=== PATIENT | male | born 1955 | race Caucasian/White ===

== ENCOUNTER 2021-08-24 00:44 | Day surgery (SDC) | payer MEDICARE, SELFPAY ==
[2021-08-14 13:48] VITALS: BMI 27.6
[2021-08-24 08:05] VITALS: BP 126/61; PULSE 72; RESP 18; TEMP 36.7; O2SAT 99; BMI 26.4
[2021-08-24] MEDS: LACTATED RINGERS 1,000 ML 150 ML IV CONT (08:27)
--- NOTE | 2021-08-24 08:42 | WPDANESEPPF ---
Anes - Initial Pre Proc Eval Procedure: Operation Date: 08/24/21 09:00 Proposed Procedures p Screening Colonoscopy - Barrera Xiong MD Date/Time: 08/24/21 08:42 Surgeon: Barrera Xiong MD Pre Op Diagnosis: hx of colon polyps Patient Data Age: 65 Gender: M Height: 1.7 m Weight: 76.4 kg Last Vital Signs Temp 98.0 F 08/24/21 08:05 Pulse 72 08/24/21 08:05 Resp 18 08/24/21 08:05 BP 126/61 08/24/21 08:05 Pulse Ox 99 08/24/21 08:05 Allergies Allergy/AdvReac Type Severity Reaction Status Date / Time No Known Allergies Allergy Verified 08/24/21 08:16 Home Medications Medication Instructions Recorded Confirmed Type acidophilus-pectin, citrus 1 cap PO DAILY 08/14/21 08/24/21 History [Acidophilus Probiotic] aspirin 81 mg PO DAILY 08/14/21 08/24/21 History nrglzpwtdzze-zqr-vyyq-FA-vit K 1 tablet PO DAILY 08/14/21 08/24/21 History [Adults Multivitamin] atorvastatin 20 mg tablet 20 mg PO DAILY #90 tablet 08/21/21 08/24/21 Rx lisinopril 20 mg tablet 20 mg PO DAILY #90 tablet 08/21/21 08/24/21 Rx buspirone 15 mg tablet 15 mg PO BID #180 tablet 08/23/21 08/24/21 Rx Patient hx anesthesia problems: none Family hx anesthesia problems: none Results Review: All pre-operative results and documents have been reviewed as part of the pre-operative evaluation. [facility] Past Medical History Medical History (Updated 06/12/21 @ 08:44 by Carlos Rosario MD) Abnormal colonoscopy 10/02 polyp Family History Family History (Updated 06/09/21 @ 11:49 by Carlos Rosario MD) Father Acute myocardial infarction Other Diabetes mellitus Family history of alcoholism Social History Social History (Updated 06/12/21 @ 08:21 by Marija Scanlon MA) Smoking status: Never smoker Second hand tobacco smoke exposure: No Alcohol intake: former Drinks per week: 1 Substance use: never Substance use type: does not use Living arrangements: with family Gender identity (if verbalized by the patient): Male Sexual Orientation (if Verbalized by the Patient): Straight or Heterosexual Spiritual care concerns: No Agree to blood products: Yes Anes - Eval Final PreProcedure Day of Procedure 08/24/21 08:42 Patient weight: normal Heart: regular rate and rhythm Lungs: clear to auscultation Airway: Mallampati scale class II Neurological: alert and oriented Last oral intake: >/= 8 hours ASA classification: II Emergent: no Anesthetic plan: proceed Anesthesia type and monitoring: general GIVS and standard monitoring Results Review: All pre-operative results and documents have been reviewed as part of the pre-operative evaluation. Informed Consent: The patient's anesthetic plan and its attendant risks and benefits were discussed with the patient/family/POA. Questions were solicited and answers provided to the satisfaction of the patient/family/POA.
--- NOTE | 2021-08-24 08:45 | WPDGICN ---
Assessment and Plan Assessment and plan (1) Encounter for screening colonoscopy: Code(s): Z12.11 - Encounter for screening for malignant neoplasm of colon Status: Acute Assessment and Plan: Patient presents today for screening colonoscopy. Further recommendations will be given after endoscopy. GI Consult Note Consult date/time: 08/24/21 08:45 HPI: Gorge Hays is a 65 year old male Presents for screening colonoscopy. Patient's current weight appetite and bowel movements are normal. He denies abdominal pain. He has had no bleeding. Family history noncontributory. Patient has prior history is significant for benign colon polyp 6 years ago. Patient presents today for neoplasia screening. Review of Systems Review of Systems: All systems reviewed & are unremarkable except as noted in HPI and below PMFSH Past Medical History Medical History (Updated 08/24/21 @ 08:46 by Barrera Xiong MD) Abnormal colonoscopy 10/02 polyp Family History Family History (Updated 06/09/21 @ 11:49 by Carlos Rosario MD) Father Acute myocardial infarction Other Diabetes mellitus Family history of alcoholism Social History Social History (Updated 06/12/21 @ 08:21 by Marija Scanlon MA) Smoking status: Never smoker Second hand tobacco smoke exposure: No Alcohol intake: former Drinks per week: 1 Substance use: never Substance use type: does not use Living arrangements: with family Gender identity (if verbalized by the patient): Male Sexual Orientation (if Verbalized by the Patient): Straight or Heterosexual Spiritual care concerns: No Agree to blood products: Yes Meds Home Medications and Allergies Home Medications Medication Instructions Recorded Confirmed Type acidophilus-pectin, citrus 1 cap PO DAILY 08/14/21 08/24/21 History [Acidophilus Probiotic] aspirin 81 mg PO DAILY 08/14/21 08/24/21 History jutjekwldpce-kum-khwj-FA-vit K 1 tablet PO DAILY 08/14/21 08/24/21 History [Adults Multivitamin] atorvastatin 20 mg tablet 20 mg PO DAILY #90 tablet 08/21/21 08/24/21 Rx lisinopril 20 mg tablet 20 mg PO DAILY #90 tablet 08/21/21 08/24/21 Rx buspirone 15 mg tablet 15 mg PO BID #180 tablet 08/23/21 08/24/21 Rx Allergies Allergy/AdvReac Type Severity Reaction Status Date / Time No Known Allergies Allergy Verified 08/24/21 08:16 Vital Signs Vital Signs - 24 hr 08/24/21 08:05 Temperature 98.0 F Pulse Rate 72 Respiratory Rate 18 Blood Pressure 126/61 Pulse Oximetry 99 Exam Narrative: Physical exam reveals patient to be alert. Vital signs stable. HEENT exam is unremarkable. Patient is anicteric. Lungs are clear to auscultation and percussion. Heart is without murmur or extra sounds. Abdominal exam bowel sounds are present soft nontender with no hepatosplenomegaly. Digital external rectal exam is normal.
[2021-08-24 09:19] VITALS: BP 82/56; PULSE 74; RESP 16; O2SAT 98
[2021-08-24 09:29] VITALS: BP 97/69; PULSE 66; RESP 20; O2SAT 95
[2021-08-24 09:39] VITALS: BP 107/75; PULSE 62; RESP 19; O2SAT 96
== END 2021-08-24 09:54 | disposition home or self-care (01) ==
PROVIDERS: PCP Family Medicine Adolescent Medicine; Visit Provider Internal Medicine Gastroenterology
PROC: 0DJD8ZZ Inspection of Lower Intestinal Tract, Via Natural or Artificial Opening Endoscopic (ICD-10-PCS; CPT 45378; principal; 2021-08-24 09:00)
DX: Z12.11 Encounter for screening for malignant neoplasm of colon (principal); D17.5 Benign lipomatous neoplasm of intra-abdominal organs; K64.8 Other hemorrhoids; K57.30 Diverticulosis of large intestine without perforation or abscess without bleeding; Z86.010 Personal history of colon polyps
CPT/HCPCS: 45380; 88305; J2704; J7120

== ENCOUNTER → 2022-10-08 09:55 | Outpatient (CLI) | payer MEDICARE, SELFPAY ==
--- NOTE | ~2022-10-08 | XR_ITS ---
[XR ribs LT 2V w CXR 2V ] INDICATION: Chest wall pain TECHNIQUE: Frontal projection of the upper left ribs, frontal projection of the lower left ribs, obli que projection of all the left ribs, frontal inspiratory chest x-ray for interpretation. FINDINGS: There is an acute minimally displaced left sixth rib fracture. There are no soft tissue abn ormality seen. There is left lower lobe airspace disease, which may represent atelectasis, pneumonia or contusion. Small left pleural effusion/hemothorax. IMPRESSION: 1: Acute minimally displaced left sixth rib fracture. 2: Left lower lobe airspace disease may represent atelectasis, pneumonia and/or contusion. 3: Small left pleural effusion/hemothorax. Reviewed, dictated and finalized at location B.
== END ==
PROVIDERS: PCP Family Medicine Adolescent Medicine; Visit Provider Family Medicine Adolescent Medicine
DX: S29.8XXA Other specified injuries of thorax, initial encounter (principal); X58.XXXA Exposure to other specified factors, initial encounter; J90 Pleural effusion, not elsewhere classified; R91.8 Other nonspecific abnormal finding of lung field
CPT/HCPCS: 71046; 71100

== ENCOUNTER 2024-03-30 09:37 | Outpatient (CLI) | payer MEDICARE, SELFPAY ==
--- NOTE | ~2024-03-30 | XR_ITS ---
EXAMINATION: XR knee LT 3V DATE: 03/30/2024 09:54 INDICATION: Left knee pain TECHNIQUE: Standing AP, lateral and sunrise views of the left knee were obtained COMPARISON: MRI dated 09/04/2010 and radiographs dated 09/01/2010 FINDINGS: Bone alignment is normal. No fracture. There is tricompartmental osteoarthritis with moderate joint s pace narrowing the lateral compartment, small marginal osteophyte without significant joint space lidia rowing in the medial and patellofemoral compartments. 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 Small left knee joint effusion at the suprapatellar pouch. IMPRESSION: 1. 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 Reviewed, dictated and finalized at location B. [facility] [employer] IMPRESSION: 1. 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
== END 2024-03-30 09:38 | disposition home or self-care (01) ==
PROVIDERS: PCP Family Medicine Adolescent Medicine; Visit Provider Family Medicine Adolescent Medicine
DX: M17.12 Unilateral primary osteoarthritis, left knee (principal)
CPT/HCPCS: 73562